=== PATIENT | male | born 1990 | race Caucasian/White ===

== ENCOUNTER 2024-12-11 16:52 | Emergency (ER) | payer MEDICAID ==
[~2024-12-11] VITALS: Ht 180.3 cm; Wt 68.2 kg
[~2024-12-11 16:52] MED LIST: HYDR-4383 PO; IBUP-1574 PO; IBUP-1984 PO; NO HOME MEDS
[2024-12-11 17:11] VITALS: TEMP 97.8
[2024-12-11] MEDS: LIDOcaine 1% W/epiNEPHrine 1:100,000 20ml vial SQ STA (17:13)
[2024-12-11] MEDS: TETanus/Pertussis (Acell)/Diphther VAC/PF (Tdap-Adult) 0.5ml syringe IMVAC ONE (18:33)
[2024-12-11 18:49] VITALS: BP 120/82; PULSE 91; RESP 18; O2SAT 99
== END 2024-12-11 18:51 | disposition home or self-care (01) ==
LOC: ER 16:52
DX: S51.812A Laceration without foreign body of left forearm, initial encounter (principal); Z79.1 Long term (current) use of non-steroidal anti-inflammatories (NSAID); Z56.0 Unemployment, unspecified; W26.8XXA Contact with other sharp object(s), not elsewhere classified, initial encounter; Y93.89 Activity, other specified; Y92.89 Other specified places as the place of occurrence of the external cause; Y99.8 Other external cause status
CPT/HCPCS: 12002; 99283; J7030; 12014; 99282; A6258